=== PATIENT | female | born 1945 | race American Indian/Alaskan Native ===

== ENCOUNTER 2016-08-15 06:00 | Emergency (ER) | payer MEDICARE ==
[2016-08-15 06:06] VITALS: BMI 23.6
[2016-08-15 06:12] VITALS: TEMP 98.6; O2SAT 99
--- NOTE | 2016-08-15 07:26 | ED PDOC ---
Arrival/HPI - General Chief Complaint: Finger,Hand,&Wrist Time Seen by Provider: 08/15/16 07:11 Historian: Patient - History of Present Illness Narrative History of Present Illness (Text): 08/15/16 07:12 A 70 year old female, whose past medical history includes arthritis and diabetes , presents to the emergency department complaining of bilateral hand pain, right hand greater than left, since yesterday. Patient reports she was making bows Monday night and used her hands a lot. She reports that she woke up monday and they were painful. Patient notes hands feel stiff and right hand feels swollen. Patient describes pain as an ache. She is R hand dominant. Patient also reports taking Tylenol that did not help pain. Patient denies falls , trauma, fevers, nausea, vomiting, shoulder pain, back pain or any other complaints at this time. She denies neck pain. She denies weakness, numbness or tingling. PMD: Dr. Cisneros Time/Duration: 24 hours Symptom Onset: Sudden Symptom Course: Unchanged Quality: Aching Context: Home Associated Symptoms (Text): none Past Medical History - Provider Review Nursing Documentation Reviewed: Yes - Infectious Disease Hx of Infectious Diseases: None - Tetanus Immunization Tetanus Immunization: Unknown - Reproductive Menopause: Yes - Cardiac Hx Hypertension: Yes Hx Pacemaker: No - Pulmonary Hx Respiratory Disorders: No - Neurological Hx Neurological Disorder: No Hx Paralysis: No - HEENT Hx HEENT Disorder: No - Renal Hx Renal Disorder: No - Endocrine/Metabolic Hx Diabetes Mellitus Type 2: Yes - Hematological/Oncological Hx Blood Disorders: No Hx Blood Transfusions: No Hx Blood Transfusion Reaction: No - Integumentary Hx Dermatological Disorder: No - Musculoskeletal/Rheumatological Hx Arthritis: Yes - Gastrointestinal Hx Gastrointestinal Disorders: No - Genitourinary/Gynecological Hx Genitourinary Disorders: No - Psychiatric Hx Anxiety: Yes Hx Depression: Yes Hx Emotional Abuse: No Hx Physical Abuse: No Hx Substance Use: No Other/Comment: Insomnia - Surgical History Other/Comment: fibroid/r ear/vocal cords - Anesthesia Hx Anesthesia: Yes Hx Anesthesia Reactions: No Hx Malignant Hyperthermia: No - Suicidal Assessment Feels Threatened In Home Enviroment: No Family/Social History - Physician Review Nursing Documentation Reviewed: Yes Family/Social History: No Known Family HX Smoking Status: Former Smoker Hx Alcohol Use: Yes (SELDOM) Hx Substance Use: No Allergies/Home Meds Allergies/Adverse Reactions: Allergies lisinopril Allergy (Verified 04/08/16 02:40) SWELLING Penicillins Allergy (Verified 04/08/16 02:40) ITCHING Home Medications: Home Meds Medication Instructions Recorded Confirmed Glyburide/Metformin HCl [Glyburide 2 tab PO BID 06/18/13 06/20/14 Micronized/Metformin HCl 5 mg-500 M] Lisinopril 10 mg PO DAILY 06/18/13 06/20/14 Loxapine Succinate [Loxapine] 1 - 2 tab PO HS 06/18/13 06/20/14 Cpm/Pse HCl [Allergy Relief 4 10 mg PO DAILY 06/20/14 06/20/14 mg-60 mg] Review of Systems - Review of Systems Constitutional: absent: Fevers Eyes: absent: Vision Changes ENT: absent: Hearing Changes Respiratory: absent: SOB, Cough, Sputum Cardiovascular: absent: Chest Pain Gastrointestinal: absent: Abdominal Pain, Constipation, Diarrhea, Nausea, Vomiting Genitourinary Female: absent: Dysuria Musculoskeletal: Other (hand pain). absent: Back Pain, Neck Pain, Joint Swelling Skin: absent: Rash Neurological: absent: Headache, Dizziness, Focal Weakness, Gait Changes, Speech Changes, Facial Droop Physical Exam Vital Signs Reviewed: Yes Vital Signs Temp Pulse Resp BP Pulse Ox 08/15/16 08:00 77 16 142/75 99 08/15/16 06:12 98.6 F 94 H 18 147/86 99 Temperature: Afebrile Blood Pressure: Normal Pulse: Regular Respiratory Rate: Normal Appearance: Positive for: Well-Appearing, Non-Toxic, Comfortable Pain Distress: None Mental Status: Positive for: Alert and Oriented X 3 - Systems Exam Head: Present: Atraumatic, Normocephalic Pupils: Present: PERRL Extroacular Muscles: Present: EOMI Conjunctiva: Present: Normal Mouth: Present: Moist Mucous Membranes Neck: Present: Normal Range of Motion Respiratory/Chest: Present: Clear to Auscultation, Good Air Exchange. No: Respiratory Distress, Accessory Muscle Use Cardiovascular: Present: Regular Rate and Rhythm, Normal S1, S2. No: Murmurs Back: Present: Normal Inspection Upper Extremity: Present: Normal Inspection, Normal ROM, Other (distal pulses intact). No: Cyanosis, Edema, Swelling, Erythema, Temperature Abnormalties Lower Extremity: Present: Normal Inspection. No: Edema Neurological: Present: GCS=15, CN II-XII Intact, Speech Normal, Gait Normal Skin: Present: Warm, Dry, Normal Color. No: Rashes Psychiatric: Present: Alert, Oriented x 3, Normal Insight, Normal Concentration Medical Decision Making ED Course and Treatment: 08/15/16 07:12 Impression: A 70 year old female with bilateral hand pain. Atraumatic. Presentation is consistent with arthritis. No trauma or indication for xray at this time. No break in skin, fever, warmth or swelling suggestive of b/l septic joint. Plan: - - Toradol -- Reassess and disposition Prior Visits: Notes and results from previous visits were reviewed. Patient last reported to the emergency department on 04/08/16 for evaluation of facial, lip and tongue swelling. Patient was discharged and advised to take Pepcid and Benadryl. Progress Note: Patient last labs reviewed, patient had normal creatinine. 08/15/16 07:18 Dr. Cisneros, PMD evaluated patient at bedside and agrees that she can follow-up in his office. She was given detailed return instructions. On reevaluation, patient feels better and is in no acute distress. Patient is stable for discharge and understands and agrees with plan to be discharged home and to follow up with PMD. - Medication Orders Current Medication Orders: Discontinued Medications Ketorolac Tromethamine (Toradol) 30 mg IM STAT STA Stop: 08/15/16 07:19 Last Admin: 08/15/16 07:27 Dose: 30 mg - Scribe Statement The provider has reviewed the documentation as recorded by the Emerson Chen All medical record entries made by the Emerson were at my direction and personally dictated by me. I have reviewed the chart and agree that the record accurately reflects my personal performance of the history, physical exam, medical decision making, and the department course for this patient. I have also personally directed, reviewed, and agree with the discharge instructions and disposition. Disposition/Present on Arrival - Present on Arrival Any Indicators Present on Arrival: No History of DVT/PE: No History of Uncontrolled Diabetes: No Urinary Catheter: No History of Decub. Ulcer: No History Surgical Site Infection Following: None - Disposition Have Diagnosis and Disposition been Completed?: Yes Diagnosis: Bilateral hand pain Disposition: HOME/ ROUTINE Disposition Time: 07:19 Patient Plan: Discharge Patient Problems: Current Active Problems Problem Status Onset Bilateral hand pain Acute Condition: GOOD Discharge Instructions (ExitCare): Arthritis (ED) Additional Instructions: Follow up with PMD within 2 days. Return to ED if condition worsens. Avoid overuse injury Referrals: Farzaneh Cisneros MD [Primary Care Provider] - Follow up with primary
[2016-08-15 08:01] VITALS: BP 142/75; PULSE 77; RESP 16
== END 2016-08-15 08:03 | disposition home or self-care (01) ==
LOC: ED 06:00
DX: M79.642 Pain in left hand (principal); M79.641 Pain in right hand; M19.90 Unspecified osteoarthritis, unspecified site
CPT/HCPCS: 96372; 99284; J1885